=== PATIENT | female | born 1970 | race Caucasian/White ===

== ENCOUNTER 2020-07-26 06:23 | Outpatient (CLI) | payer SELFPAY ==
[2020-07-26 08:35] LABS: HEMOGLOBIN A1C 6.2 % (4.5-6.2)
[2020-07-26 08:51] LABS: CHOL/HDL RATIO 3.71 (0.00-4.99)
== END 2020-07-26 23:59 | disposition home or self-care (01) ==
LOC: HW HEART 06:23
DX: Z13.6 Encounter for screening for cardiovascular disorders (principal)
CPT/HCPCS: 36415